=== PATIENT | male | born 1945 | race Caucasian/White ===

== ENCOUNTER 2021-09-04 19:32 | Inpatient (IN) | payer OTHER, MEDICAID ==
[~2021-09-04] VITALS: Ht 175.3 cm; Wt 90.7 kg
[2021-09-04 19:42] VITALS: BP 117/60
--- NOTE | 2021-09-04 19:49 | NUR ---
PT W/C ASSISTED TO BED #8
--- NOTE | 2021-09-04 20:28 | NUR ---
Dr. Valenzuela examining patient.
[2021-09-04 20:54] LABS: BASOPHILS % (AUTO) 0.1 % (0.0-2.0); EOSINOPHILS % (AUTO) 0.1 % (0.0-4.0); HEMOGLOBIN 14.5 g/dL (12.0-18.0); LYMPHOCYTES # (AUTO) 0.7 K/uL (2.0-11.5); LYMPHOCYTES % (AUTO) 5.5 % (20.5-51.1); MEAN CORPUSCULAR HEMOGLOBIN 31 pg (27-31); MEAN CORPUSCULAR HGB CONC 34 g/dL (33-37); MEAN CORPUSCULAR VOLUME 92.8 fL (80-94); MONOCYTES # (AUTO) 1.3 K/uL (0.8-1.0); MONOCYTES % (AUTO) 10.4 % (1.7-9.3); NEUTROPHILS # (AUTO) 10.8 K/uL (1.8-7.7); NEUTROPHILS % (AUTO) 83.9 % (42.2-75.2); PLATELET COUNT (AUTO) 300 K/uL (140-450); RED BLOOD CELL COUNT(AUTO) 4.64 MIL/uL (4.20-6.10); RED CELL DISTRIBUTION WIDTH 14.2 % (11.6-13.7); WHITE BLOOD COUNT (AUTO) 12.8 K/uL (4.8-10.8)
[2021-09-04 21:15] LABS: ANION GAP 11.4 (8-16); ASPARTATE AMINOTRANSFERASE 23 U/L (15-37); CHLORIDE 102 mmol/L (98-107); CREATININE 0.8 mg/dL (0.6-1.3); GLUCOSE 125 mg/dL (74-106); POTASSIUM 4.4 mmol/L (3.5-5.1); SODIUM SERUM 138 mmol/L (136-145); TOTAL BILIRUBIN 0.5 mg/dL (0.0-1.0); UREA NITROGEN, BLOOD 16 mg/dL (7-18)
[2021-09-04 21:16] LABS: ACETAMINOPHEN < 0.5 ug/ml (10-30); SALICYLATE < 2.8 mg/dL (2.8-20.0)
--- NOTE | 2021-09-04 21:37 | NUR ---
PT TAKEN TO CT
--- NOTE | 2021-09-04 21:48 | NUR ---
PT RETURN FROM CT
[2021-09-04] MEDS ORDERED: NALOXONE 0.4 MG/ML VIAL IVP ONE (22:00)
[2021-09-04 22:43] LABS: BARBITURATE, URINE POSITIVE ng/ml (NEG <=200); BENZODIAZEPINE, URINE POSITIVE ng/mL (NEG <=200); CANNABINOID, URINE NEGATIVE ng/mL (NEG <=50); COCAINE, URINE NEGATIVE ng/mL (NEG <=300); OPIATE, URINE NEGATIVE ng/mL (NEG <=2000); PHENCYCLIDINE SCREEN,URINE NEGATIVE ng/mL (NEG <=25)
[2021-09-04] MEDS ORDERED: DEXT 5% / NACL 0.45% 1,000 ML IV SCH (22:45)
[2021-09-04] MEDS: DEXT 5% / NACL 0.45% 1,000 ML IV SCH (23:37)
[2021-09-05] MEDS ORDERED: AMLO10TA PO (00:13)
[2021-09-05] MEDS ORDERED: APIX5TAB PO (00:14)
[2021-09-05] MEDS ORDERED: KEP500I IV (00:17)
[2021-09-05] MEDS ORDERED: SYN.05 PO (00:19)
[2021-09-05] MEDS ORDERED: [UNRECOGNIZED DRUG - CODE] MC (00:21)
[2021-09-05] MEDS ORDERED: OLAN20TA1 PO (00:24)
[2021-09-05] MEDS ORDERED: CLON0.5T3 PO (00:26)
[2021-09-05] MEDS ORDERED: DIVA500T1 PO ×2 (00:29→00:30)
[2021-09-05] MEDS ORDERED: DOCU-299 PO (00:31)
[2021-09-05] MEDS ORDERED: METO25TA14 PO (00:34)
[2021-09-05] MEDS ORDERED: METO25TA PO (00:34)
--- NOTE | 2021-09-05 00:38 | NUR ---
PATIENT TRANSFERED TO TELE ROOM 110 b REPORT GAVE TO TERESSA DA SILVA PATIENT STABLE AT THE TRANSFER VITALS SIGNS IN NORMAL LIMITS A FIB 99 ON THE MONITOR //DiCaprio RN
[2021-09-05] MEDS: DEXT 5% / NACL 0.45% 1,000 ML IV SCH ×3 (01:34→22:41)
[2021-09-05 02:20] VITALS: BP 119/70
--- NOTE | 2021-09-05 05:30 | NUR ---
The patint was admitted to the [facility] unit at 0100 for ALOC and decreased appetite for few days. he hx of schziphrenia,biplaor , dementia htn,HLD, and afib . vitals are stable. breathing is even and unlabored. the patient is drowzy and sleepy lying comfortable in his bed. per disease case manager rn. she thinks that his condition is possible form anticonvulsant overdose. vitals are stable.. urine is positive for benzodiazepines and barbiturates . ewing catheter in place. comfort and safety measures are provided.
--- NOTE | 2021-09-05 07:40 | NUR ---
RECEIVED PATIENT FROM TRANSMITTER OPERATOR NURSE FOR CONTINUITY OF CARE. PT IS AOX1, ABLE TO TRACK WITH EYES. RESPIRATIONS EVEN AND UNLABORED. ON ROOM AIR AND NO DISTRESS NOTED. SKIN IS WARM, DRY, AND INTACT. IV SITE L WRIST 22 G INFUSING FLUIDS WELL. INTACT AND PATENT. FLACC 0. CURRENTLY NPO. PLAN OF CARE DISCUSSED. SAFETY PRECAUTIONS IN PLACE. CALL LIGHT WITHIN REACH. WILL CONTINUE TO MONITOR.
[2021-09-05 08:00] VITALS: BP 102/57
--- NOTE | 2021-09-05 08:08 | NUR ---
PATIENT HAS BEEN SCREENED AND CATEGORIZED HIGH NUTRITION RISK. PATIENT WILL BE SEEN WITHIN 1-2 DAYS OF ADMISSION. 09/05/21-09/06/21 REFERRAL RECEIVED FOR DECREASED APPETITE [address]
--- NOTE | 2021-09-05 09:10 | NUR ---
NO SCHEDULED MEDS GIVEN. PT IS STABLE. NO DISTRESS NOTED. WILL CONTINUE TO MONITOR.
--- NOTE | 2021-09-05 10:05 | NUR ---
MERVAT WOLF AT PATIENT'S BEDSIDE ASSESSING PATIENT.
[2021-09-05] MEDS ORDERED: clonazePAM 0.5 MG TAB PO PRN (10:25)
[2021-09-05] MEDS ORDERED: ACETAMINOPHEN 325 MG TAB PO PRN (10:25)
[2021-09-05] MEDS ORDERED: MAGNESIUM HYDROXIDE 2400 MG/30 ML UDC PO PRN (10:25)
[2021-09-05] MEDS ORDERED: ONDANSETRON 4 MG/2 ML VIAL IVP PRN (10:45)
[2021-09-05] MEDS ORDERED: HYDROcodone/APAP 5/325 MG 1 TAB TAB PO PRN (10:45)
--- NOTE | 2021-09-05 10:52 | NUR ---
09/05/21 RD INITIAL ASSESSMENT COMPLETED PLEASE REFER TO NUTRITION ASSESSMENT UNDER CARE ACTIVITY FOR ESTIMATED NUTRITIONAL NEEDS. 1. RECOMMEND SWALLOW EVAL 2. RD TO FOLLOW-UP 2-3 DAYS, HIGH RISK REVIEWED BY IRVIN PUGA RD
--- NOTE | 2021-09-05 12:57 | NUR ---
PATIENT YELLING IN DISTRESS. REDIRECTED AND CALMED PATIENT DOWN.
[2021-09-05 15:32] LABS: APPEARANCE,URINE CLEAR (CLEAR); BILIRUBIN,URINE NEGATIVE (NEGATIVE); BLOOD, URINE NEGATIVE (NEGATIVE); COLOR,URINE DARK YELLOW (YELLOW); LEUKOCYTE ESTERASE ,URINE NEGATIVE (NEGATIVE); NITRITE, URINE NEGATIVE (NEGATIVE); UGLUCOSE NEGATIVE (NEGATIVE)
[2021-09-05 16:00] VITALS: BP 109/58
--- NOTE | 2021-09-05 16:10 | NUR ---
ST AT PATIENT'S BEDSIDE PERFORMING SWALLOW EVAL TEST FOR PATIENT.
--- NOTE | 2021-09-05 16:17 | NUR ---
PT WAS SEEN FOR DYSPHAGIA. PT WAS ABLE TO SAFELY SWALLOW PUREE DIET WITH THIN LIQUID. RECOMMENDATION PUREE DIET WITH THIN LIQUID
[2021-09-05] MEDS ORDERED: NITROFURANTOIN 100 MG CAP PO SCH (17:00)
--- NOTE | 2021-09-05 17:00 | NUR ---
ALL SCHEDULED MEDS GIVEN. PT IS STABLE. NO DISTRESS NOTED. WILL CONTINUE TO MONITOR.
--- NOTE | 2021-09-05 17:08 | NUR ---
DC PLANNING: PATIENT WAS ADMITTED FROM [facility] WITH [facility] DX OF ALOC. CALLED [facility] AND SPOKE WITH EDGAR [phone]. CONSULTED WITH NEUROLOGIST DR KAPOOR, ID AND CARDIO DC PLAN TO GO BACK TO THE [facility] WHEN STABLE CM TO FOLLOW
--- NOTE | 2021-09-05 19:44 | NUR ---
ENDORSED TO CLERK SPECIALIST NURSE FOR CONTINUITY OF CARE. PT IS STABLE.
--- NOTE | 2021-09-05 19:45 | NUR ---
RECD. RESTING IN BED, AWAKE, ALERT, CONFUSED. RESPIRATION EVEN AND UNLABORED. 0 SAT - 96% ON ROOM AIR. NOTED OCCASIONAL UNPRODUCTIVE COUGHING. IV OF D5 0.45%NS INFUSING AT 100ML/HR, LEFT WRIST G20. F/C PATENT DRAINING CLEAR YELLOW URINE. SAFETY MEASURES ENFORCED. BED IN THE LOWEST POSITION, BED ON ALARM. OCCaSIONALLY SHOUTS. REORIENTED TO HOSPITAL SETTING. UNABLE TO COMPREHEND. NO APPEARANCE OF PAIN NOTED 0/10.
[2021-09-05 20:00] VITALS: BP 116/62
--- NOTE | 2021-09-05 20:00 | NUR ---
Patient's Plan of Care was discussed and reviewed with STATION CAPTAIN: ADALBERTO WOMACK
[2021-09-05] MEDS: PHENYTOIN 100 MG CAPER PO SCH (20:38)
[2021-09-05] MEDS: levETIRAcetam 500 MG TAB PO SCH (20:39)
[2021-09-05] MEDS: OLANZapine 5 MG TAB PO SCH (20:39)
[2021-09-05] MEDS: DIVALPROEX 500 MG TABER PO SCH (20:40)
--- NOTE | 2021-09-05 20:41 | NUR ---
SCHEDULED MEDICATIONS FOR THE NIGHT CRUSHED AND ADMINISTERED WITH APPLE SAUCE. TOLERATED WELL.
[2021-09-05] MEDS: APIXABAN 2.5 MG TAB PO SCH (20:43)
[2021-09-05] MEDS ORDERED: LOSARTAN 50 MG TAB PO SCH (21:00)
[2021-09-05] MEDS ORDERED: METOPROLOL 25 MG TAB PO SCH (21:00)
--- NOTE | 2021-09-06 | NUR ---
SLEEPING COMFORTABLY IN BED. RESPIRATION EVEN AND UNLABORED.
--- NOTE | 2021-09-06 02:00 | NUR ---
WITH OCCASIONAL UNPRODUCTIVE COUGHING NOTED. NO RESPIRATORY DISTRESS NOTED.
[2021-09-06 04:00] VITALS: BP 123/69
--- NOTE | 2021-09-06 04:00 | NUR ---
COMFORTABLE IN BED. STILL ASLEEP SOUNDLY IN BED. RESPIRATORY STATUS STABLE.
[2021-09-06] MEDS: DEXT 5% / NACL 0.45% 1,000 ML IV SCH (05:00)
[2021-09-06] MEDS: LEVOTHYROXINE 0.05 MG TAB PO SCH (06:41)
[2021-09-06 07:01] LABS: ANION GAP 10.3 (8-16); CARBON DIOXIDE 28.7 mmol/L (21-32); CHLORIDE 105 mmol/L (98-107); CREATININE 0.5 mg/dL (0.6-1.3); GLUCOSE 69 mg/dL (74-106); SODIUM SERUM 140 mmol/L (136-145); UREA NITROGEN, BLOOD 8 mg/dL (7-18)
[2021-09-06 07:19] LABS: BASOPHILS % (AUTO) 0.3 % (0.0-2.0); EOSINOPHILS # (AUTO) 0.1 K/uL (0-0.4); EOSINOPHILS % (AUTO) 1.7 % (0.0-4.0); HEMATOCRIT 36.6 % (36-52); HEMOGLOBIN 12.4 g/dL (12.0-18.0); LYMPHOCYTES # (AUTO) 0.7 K/uL (2.0-11.5); LYMPHOCYTES % (AUTO) 8.6 % (20.5-51.1); MEAN CORPUSCULAR HEMOGLOBIN 31 pg (27-31); MEAN CORPUSCULAR HGB CONC 34 g/dL (33-37); MONOCYTES # (AUTO) 0.9 K/uL (0.8-1.0); MONOCYTES % (AUTO) 12.2 % (1.7-9.3); NEUTROPHILS # (AUTO) 5.9 K/uL (1.8-7.7); NEUTROPHILS % (AUTO) 77.2 % (42.2-75.2); PLATELET COUNT (AUTO) 234 K/uL (140-450); RED BLOOD CELL COUNT(AUTO) 3.98 MIL/uL (4.20-6.10); WHITE BLOOD COUNT (AUTO) 7.7 K/uL (4.8-10.8)
--- NOTE | 2021-09-06 07:25 | NUR ---
CONDITION REMAIN STABLE. ENDORSED TO AM SHIFT NURSE FOR CONTINUITY OF CARE.
--- NOTE | 2021-09-06 07:27 | NUR ---
RECEIVED PATIENT FROM DUST COLLECTOR TREATER NURSE FOR CONTINUITY OF CARE. PT IS AOX1, ABLE TO TRACK WITH EYES. RESPIRATIONS EVEN AND UNLABORED. ON ROOM AIR AND NO DISTRESS NOTED. SKIN IS WARM, DRY, AND INTACT. IV SITE L WRIST 22 G INFUSING FLUIDS WELL. INTACT AND PATENT. FLACC 0. PLAN OF CARE DISCUSSED. SAFETY PRECAUTIONS IN PLACE. CALL LIGHT WITHIN REACH. WILL CONTINUE TO MONITOR.
[2021-09-06 08:00] VITALS: BP 139/80
[2021-09-06] MEDS ORDERED: SODIUM CHLORIDE 1 GM TAB PO SCH (09:00)
--- NOTE | 2021-09-06 09:25 | NUR ---
FIRE BOAT ENGINEER AT PATIENT'S BEDSIDE ASSESSING PATIENT.
[2021-09-06] MEDS: DOCUSATE SODIUM 100 MG GELCAP PO SCH (09:49)
[2021-09-06] MEDS: PHENYTOIN 100 MG CAPER PO SCH ×2 (09:53→21:25)
[2021-09-06] MEDS: amLODIPine 5 MG TAB PO SCH (09:53)
[2021-09-06] MEDS: FOLIC ACID 1 MG TAB PO SCH (09:53)
[2021-09-06] MEDS: levETIRAcetam 500 MG TAB PO SCH ×2 (09:53→21:25)
[2021-09-06] MEDS: MULTIVITAMIN/MINERALS 1 TAB PO SCH (09:54)
[2021-09-06] MEDS: ASCORBIC ACID 500 MG TAB PO SCH (09:54)
[2021-09-06] MEDS: DIVALPROEX 500 MG TABER PO SCH ×2 (09:54→21:24)
[2021-09-06] MEDS: APIXABAN 2.5 MG TAB PO SCH ×2 (09:59→21:44)
--- NOTE | 2021-09-06 10:05 | NUR ---
ALL SCHEDULED MEDS GIVEN. PT IS STABLE. NO DISTRESS NOTED. WILL CONTINUE TO MONITOR.
[2021-09-06 12:00] VITALS: BP 132/76
--- NOTE | 2021-09-06 12:30 | NUR ---
CHECKED ON PATIENT. PATIENT IS STABLE. NO DISTRESS NOTED. WILL CONTINUE TO MONITOR.
--- NOTE | 2021-09-06 14:11 | NUR ---
CHECKED ON PATIENT. PATIENT IS STABLE. NO DISTRESS NOTED. WILL CONTINUE TO MONITOR.
[2021-09-06 16:00] VITALS: BP 134/71
--- NOTE | 2021-09-06 16:45 | NUR ---
ALL SCHEDULED MEDICATIONS GIVEN. PT IS STABLE. NO DISTRESS NOTED. WILL CONTINUE TO MONITOR.
--- NOTE | 2021-09-06 19:28 | NUR ---
ENDORSED TO ACUTE CARE SURGEON NURSE FOR CONTINUITY OF CARE. PT IS STABLE.
--- NOTE | 2021-09-06 19:30 | NUR ---
RECEIVED ENDORSEMENT FROM MORNING SHIFT FOR CONTINUITY OF CARE. PATIENT IS STABLE AND RESTING IN BED. A&OX1. VERBALLY RESPONSE UPON AROUSAL. PATIENT DENIES PAIN AT THIS TIME. ON RA WITH AN O2 SAT OF 96%. RESPIRATIONS EVEN AND UNLABORED. NO APPARENT S/SX OF ACUTE DISTRESS. SKIN INTACT. PATIENT HAS A F/C WITH VISIBLE OUTPUT DRAINING. CHARACTERISTIC IS CLEAR YELLOW AND NONODOROUS. PATIENT HAS A LEFT WRIST 22G SALINE LOCK. POC AND WHITE COMMUNICATION BOARD UPDATED. ALL SAFETY MEASURES IN PLACE. CALL LIGHT WITHIN REACH. WILL CONTINUE TO MONITOR.
[2021-09-06 20:00] VITALS: BP 140/75
[2021-09-06] MEDS ORDERED: LOSARTAN 50 MG TAB PO SCH (21:00)
[2021-09-06] MEDS: METOPROLOL 25 MG TAB PO SCH (21:25)
[2021-09-06] MEDS: OLANZapine 5 MG TAB PO SCH (21:25)
--- NOTE | 2021-09-06 21:30 | NUR ---
ADMINISTERED SCHEDULED MEDICATIONS PER MD ORDER. PATIENT TOLERATED WELL. NO AR NOTED AT THIS TIME. PATIENT DENIES PAIN AT THIS TIME. RESPIRATIONS EVEN AND UNLABORED. NO APPARENT ACUTE S/SX OF ACUTE DISTRESS. WHITE COMMUNICATION BOARD UPDATED. ALL SAFETY MEASURES IN PLACE. CALL LIGHT WITHIN REACH. WILL CONTINUE TO MONITOR.
--- NOTE | 2021-09-06 23:30 | NUR ---
CHECKED PATIENT. STABLE AND ASLEEP IN SUPINE POSITION. FLACC=0. CHEST RISING AND FALLING. RESPIRATIONS EVEN AND UNLABORED. NO APPARENT S/SX OF ACUTE DISTRESS. WHITE BOARD COMMUNICATION UPDATED. ALL SAFETY MEASURES IN PLACE. CALL LIGHT WITHIN REACH. WILL CONTINUE TO MONITOR.
--- NOTE | 2021-09-07 01:30 | NUR ---
ROUNDED ON PATIENT. STABLE AND ASLEEP. CHEST RISING AND FALLING. RESPIRATIONS EVEN AND UNLABORED. NO APPARENT S/SX OF ACUTE DISTRESS. WHITE BOARD COMMUNICATION UPDATED. ALL SAFETY MEASURES IN PLACE. CALL LIGHT WITHIN REACH. WILL CONTINUE TO MONITOR.
--- NOTE | 2021-09-07 03:30 | NUR ---
PATIENT SOILED. ASSISTED WITH LANGUAGE ASST TO CLEAN AND CHANGE PATIENT. FLACC=0. RESPIRATIONS EVEN AND UNLABORED. NO APPARENT S/SX OF ACUTE DISTRESS. WHITE COMMUNICATION BOARD UPDATED. ALL SAFETY MEASURES IN PLACE. CALL LIGHT WITHIN REACH. WILL CONTINUE TO MONITOR.
--- NOTE | 2021-09-07 05:30 | NUR ---
SCHEDULED MORNING MEDICATION ADMINISTERED PER MED ORDER. TOLERATED WELL. NO AR NOTED AT THIS TIME. ATTEMPTED TO REINSERT IV TWICE. WILL ENDORSE TO CHARGE NURSE WENDY TO HELP ESTABLISH A NEW IV LINE.
[2021-09-07] MEDS: LEVOTHYROXINE 0.05 MG TAB PO SCH (05:52)
[2021-09-07 06:41] LABS: BASOPHILS % (AUTO) 0.5 % (0.0-2.0); EOSINOPHILS # (AUTO) 0.2 K/uL (0-0.4); EOSINOPHILS % (AUTO) 2.2 % (0.0-4.0); HEMATOCRIT 38.1 % (36-52); HEMOGLOBIN 12.8 g/dL (12.0-18.0); LYMPHOCYTES # (AUTO) 0.8 K/uL (2.0-11.5); LYMPHOCYTES % (AUTO) 11.5 % (20.5-51.1); MEAN CORPUSCULAR HEMOGLOBIN 31 pg (27-31); MEAN CORPUSCULAR HGB CONC 34 g/dL (33-37); MEAN CORPUSCULAR VOLUME 91.3 fL (80-94); MONOCYTES # (AUTO) 0.9 K/uL (0.8-1.0); MONOCYTES % (AUTO) 11.6 % (1.7-9.3); NEUTROPHILS # (AUTO) 5.5 K/uL (1.8-7.7); NEUTROPHILS % (AUTO) 74.2 % (42.2-75.2); PLATELET COUNT (AUTO) 269 K/uL (140-450); RED BLOOD CELL COUNT(AUTO) 4.18 MIL/uL (4.20-6.10); RED CELL DISTRIBUTION WIDTH 14.1 % (11.6-13.7); WHITE BLOOD COUNT (AUTO) 7.4 K/uL (4.8-10.8)
[2021-09-07 06:55] LABS: ALBUMIN 2.4 g/dL (3.4-5.0); ANION GAP 7.4 (8-16); ASPARTATE AMINOTRANSFERASE 14 U/L (15-37); CARBON DIOXIDE 31.7 mmol/L (21-32); CHLORIDE 104 mmol/L (98-107); CREATININE 0.7 mg/dL (0.6-1.3); GLUCOSE 81 mg/dL (74-106); POTASSIUM 4.1 mmol/L (3.5-5.1); SODIUM SERUM 139 mmol/L (136-145); TOTAL BILIRUBIN 0.2 mg/dL (0.0-1.0); UREA NITROGEN, BLOOD 11 mg/dL (7-18)
--- NOTE | 2021-09-07 07:02 | NUR ---
ENDORSED PATIENT TO MORNING SHIFT FOR CONTINUITY OF CARE. PATIENT IS STABLE.
--- NOTE | 2021-09-07 07:03 | NUR ---
RECEIVED REPORT FROM CURB WORKER NURSE FOR CONTINUITY OF CARE. PT STABLE. NO S/S OF DISTRESS. BREATHING SYMMETRICAL. CALL LIGHT IN REACH. ALL SAFETY MEASURES IN PLACE. DIET IS PUREED.
[2021-09-07] MEDS: DOCUSATE SODIUM 100 MG GELCAP PO SCH (09:00)
[2021-09-07] MEDS: FOLIC ACID 1 MG TAB PO SCH (09:00)
[2021-09-07] MEDS: PHENYTOIN 100 MG CAPER PO SCH (10:25)
[2021-09-07] MEDS: amLODIPine 5 MG TAB PO SCH (10:25)
[2021-09-07] MEDS: ASCORBIC ACID 500 MG TAB PO SCH (10:26)
[2021-09-07] MEDS: DIVALPROEX 500 MG TABER PO SCH (10:26)
[2021-09-07] MEDS: MULTIVITAMIN/MINERALS 1 TAB PO SCH (10:27)
[2021-09-07] MEDS: APIXABAN 2.5 MG TAB PO SCH (10:29)
[2021-09-07] MEDS: levETIRAcetam 500 MG TAB PO SCH (10:31)
[2021-09-07] MEDS: METOPROLOL 25 MG TAB PO SCH (10:31)
--- NOTE | 2021-09-07 12:01 | NUR ---
DC PLANNING: ORDER RECEIVED FOR SN[facility] PLACEMENT FOR P.T.. RUTH SPOKE WITH JYOTI MORE FROM [facility] WHO STATES THE PATIENT IS ALREADY RECEIVING PHYSICAL THERAPY THERE. JYOTI WILL SET UP TRANSPORT ONCE A FINAL DC ORDER IS RECEIVED, CM WILL FOLLOW FOR NEEDS. Addendum: 09/07/21 at 1230 by Magda Dan CM DC PLANNING: RUTH SPOKE WITH JYOTI MORE([phone]), HE WILL TRIM DIE MAKER THE PATIENT BETWEEN 2 AND 3:30 TODAY. PATIENTS REKHA PEÑALOZA AWARE OF DC, CM WILL FOLLOW FOR NEEDS.
[2021-09-07 13:44] VITALS: BP 109/72
--- NOTE | 2021-09-07 14:00 | NUR ---
I DC HODGES PER MD ORDER. PT IS URINATING. PT IS STABLE. TOLERATED WELL.
--- NOTE | 2021-09-07 15:30 | NUR ---
PT PICKED UP BY REP FROM [facility]. PICKED UP PT IN PTS WHEELCHAIR. ALL BELONGINGS WITH PT. REP SIGNED ALL DC PAPERWORK. IV WAS TAKEN OUT, INTACT. SKIN INTACT. REP GRATEFUL FOR CARE.
== END 2021-09-07 16:30 | disposition home or self-care (01) | DRG 871 ==
LOC: MED 19:32 → MMU 22:45 → MED 22:45 → MTU 09-05 00:01
PROVIDERS: ADMIT Preventive Medicine Preventive Medicine/Occupational Environmental Medicine; ATTEND Preventive Medicine Preventive Medicine/Occupational Environmental Medicine
DX: A41.9 Sepsis, unspecified organism (principal); G92.8 Other toxic encephalopathy; F13.20 Sedative, hypnotic or anxiolytic dependence, uncomplicated; I48.21 Permanent atrial fibrillation; R73.9 Hyperglycemia, unspecified; E03.9 Hypothyroidism, unspecified; E78.5 Hyperlipidemia, unspecified; E88.09 Other disorders of plasma-protein metabolism, not elsewhere classified; F31.9 Bipolar disorder, unspecified; R53.81 Other malaise; T50.905A Adverse effect of unspecified drugs, medicaments and biological substances, initial encounter; G40.909 Epilepsy, unspecified, not intractable, without status epilepticus; Z20.822 Contact with and (suspected) exposure to COVID-19; I10 Essential (primary) hypertension; F25.9 Schizoaffective disorder, unspecified; Z86.718 Personal history of other venous thrombosis and embolism; Z79.01 Long term (current) use of anticoagulants; Z79.899 Other long term (current) drug therapy; Y92.89 Other specified places as the place of occurrence of the external cause
CPT/HCPCS: 36415; 70450; 71045; 80048; 80053; 80185; 80305; 81003; 83930; 84439; 84443; 84484; 85025; 85651; 86140; 87040; 87081; 87086; 92526; 92610; 96374; 97163-GP; 97530; 99285; G0480; G0482; J0696; J2310; J7060; Q0092